=== PATIENT | female | born 1955 | race Caucasian/White ===

== ENCOUNTER 2022-03-18 14:41 | Outpatient (RCR) | payer BC, SELFPAY | END 2022-03-25 11:36 | disposition home or self-care (01) | PROVIDERS: Visit Provider Physician Assistant | DX: M79.672 Pain in left foot (principal); M79.671 Pain in right foot; Z51.89 Encounter for other specified aftercare | CPT/HCPCS: 97161; 97760 ==

== ENCOUNTER 2022-05-08 08:00 | Outpatient (RCR) | payer BC, SELFPAY | END 2022-06-02 14:54 | disposition home or self-care (01) | PROVIDERS: PCP Family Medicine; Visit Provider Family Medicine | DX: M54.9 Dorsalgia, unspecified (principal); Z51.89 Encounter for other specified aftercare | CPT/HCPCS: 97110; 97161 ==

== ENCOUNTER 2022-05-29 17:43 | Outpatient (REF) | payer BC, SELFPAY ==
[2022-05-29 19:22] LABS: SARS PCR* Negative SARS-CoV-2 (Negative)
== END 2022-05-29 17:44 | disposition home or self-care (01) ==
LOC: NPINS 17:43
PROVIDERS: PCP Physician Assistant; Visit Provider Podiatrist
DX: Z20.822 Contact with and (suspected) exposure to COVID-19 (principal)
CPT/HCPCS: 87635

== ENCOUNTER 2022-06-01 05:58 | Day surgery (SDC) | payer BC, SELFPAY ==
[2022-06-01 06:14] VITALS: BMI 21.5
[2022-06-01 06:19] VITALS: BP 116/83; PULSE 71; RESP 16; TEMP 36.6; O2SAT 97
[2022-06-01] MEDS: SODIUM CHLORIDE 0.9 % (FLUSH) 10 ML SYRINGE IVF (06:30)
[2022-06-01] MEDS: LACTATED RINGERS 1000 ML 1,000 ML 100 ML IV (06:30)
--- NOTE | 2022-06-01 07:12 | CRLHL7_ITS ---
For Patients: As a result of the Cures Act, medical imaging exams and procedure reports are released immediately into your electronic medical record. You may view this report before your referring provider. If you have questions, please contact your health care provider. Indication: Left MPJ repair Technique: Two views intraoperative fluoroscopic image Comparison: No comparison Findings: Plate and screw fixation through the left 1st MTP joint normal alignment. Impression: Impression: Dictated by Rachel Ruiz MD @ 06/01/2022 10:21:12 AM (Electronically Signed)
[2022-06-01] MEDS: CEFAZOLIN 1 GM inj IVP (07:25)
[2022-06-01] MEDS: BUPIVACAINE 0.5% 30 ML INJECTION (07:27)
[2022-06-01 09:17] VITALS: BP 97/75; PULSE 64; RESP 16; TEMP 36.3; O2SAT 98
--- NOTE | 2022-06-01 09:22 | W.ANESCHARGE ---
Anesthesia Charges Start Date/Time Anesthesia Start Date: 06/01/22 Anesthesia Start Time: 07:17 Stop Date/Time Anesthesia Stop Date: 06/01/22 Anesthesia Stop Time: 09:20 Summary Emergency: No
[2022-06-01 09:30] VITALS: BP 115/71; PULSE 63; RESP 16; O2SAT 97
--- NOTE | 2022-06-01 09:34 | PM.GSPRC ---
Operative Note Date of procedure: 06/01/22 Type of Procedure: 1st MPJ fusion left foot Procedure Description: Preoperative diagnosis: Hallux rigidus left Postoperative diagnosis: Hallux rigidus left Procedure: 1st MPJ fusion left After discussing the risks and benefits of the procedure, the patient signed informed consent.? The operative site was marked and the patient was brought to the operating room and placed on the operating table in supine position.? Care was taken to pad the patient's pressure points.?? The patient was then given sedation by anesthesia and administered 30 mL 0.5% Marcaine plain the.?? The operative site was then prepped and draped in the usual sterile fashion.? A time-out was then performed. Left leg was then exsanguinated and the tourniquet inflated. Linear incision was made over the 1st metatarsophalangeal joint. The incision was carried down through skin subcutaneous tissues.: Linear capsular and periosteal incision was made. Tissues reflected away from the 1st metatarsal head and proximal phalangeal base. Significant arthritic changes to both the 1st metatarsal head and proximal phalangeal base. Next bone spurs were resected using sagittal saw from the dorsal and medial aspect of the 1st metatarsal head. A guide pin was placed in the 1st metatarsal head and an 18 mm Reamer was used to remove the remaining cartilage and subchondral bone. Typing was removed and placed in the base of proximal phalanx and the corresponding 18 mm Reamer was used to remove the remaining cartilage and subchondral bone. The area was thoroughly irrigated with sterile saline. The opposing fusion surfaces were fenestrated with a K-wire. Simulating weight-bearing with a metal plate the great toe was positioned optimally and temporally fixated with a 0.062 K-wire. C-arm images confirmed position. Guidepin was placed from the distal medial to proximal lateral across the fusion site. 3.0 cannulated headless screw was placed. Excellent compression was noted across the fusion site. A dorsally placed plate was applied. 3.0 mm locking screws x3 were placed distally and 3.0 mm locking screws x2 were placed proximally. An additional 3.0 mm nonlocking screw was placed proximally in the plate. C-arm images confirmed excellent position. With earlier given normal sterile saline. The fascia and capsule repaired with 3-0 Vicryl. Subcutaneous tissues repaired with 4-0 Monocryl the skin closed with 4-0 Prolene. Sterile dressing was applied. Tourniquet was released and normal capillary fill time returned to all digits. She is placed in a well-padded cam boot. Patient tolerated anesthesia and procedure well. The patient was then woken and transported to the recovery area in stable condition. She was discharged per Anesthesia. She is weight-bearing to the heel in the Cam boot with crutch assistance. She is given oxycodone for pain. She is given both written and verbal postop instructions. She will follow-up in 2 days. ? Implants: Arthrex 1st MPJ fusion plate x1. Arthrex 3.0 cannulated headless screw x1. Arthrex 3.0 locking screw x5. Arthrex 3.0 nonlocking screw x1 Anesthesia: MAC and local Surgeon: Scot Levin DPM Estimated blood loss (mL): 2 Condition: stable Disposition: same day
[2022-06-01 09:45] VITALS: BP 130/79; PULSE 62; RESP 16; O2SAT 98
[2022-06-01 10:00] VITALS: BP 127/72; PULSE 67; RESP 16; O2SAT 97
--- NOTE | 2022-06-01 10:20 | SUR.PHASEII ---
PT HERE AT 1000 FOR CRUTCH TRAINING. PATIENT TOLERATED YOGURT AND TEA.
--- NOTE | 2022-06-01 10:45 | W.ANESCHARGE ---
Anesthesia Charges Start Date/Time Anesthesia Start Date: 06/01/22 Anesthesia Start Time: 07:17 Stop Date/Time Anesthesia Stop Date: 06/01/22 Anesthesia Stop Time: 09:20 Summary Emergency: No
== END 2022-06-01 10:40 | disposition home or self-care (01) ==
PROVIDERS: PCP Physician Assistant; Visit Provider Podiatrist
PROC: (CPT 28740; principal; 2022-06-01 07:15)
DX: M20.22 Hallux rigidus, left foot (principal)
CPT/HCPCS: 28289; 01480; 73620; 76000; 97116; 97161; A4580; C1713; J0690; J1100; J2250; J2370; J2405; J2704; J3010; J3490; J7120

== ENCOUNTER 2024-06-06 13:00 | Outpatient (RCR) | payer MEDICARE, BC, SELFPAY | END 2024-08-15 13:03 | disposition home or self-care (01) | PROVIDERS: PCP Physician Assistant; Visit Provider Family Medicine | DX: M25.552 Pain in left hip (principal); Z51.89 Encounter for other specified aftercare | CPT/HCPCS: 97110; 97140; 97161 ==

== ENCOUNTER 2024-06-27 06:45 | Outpatient (CLI) | payer MEDICARE, BC, SELFPAY | END 2024-06-27 06:46 | disposition home or self-care (01) | LOC: INJ CL 06:45 | PROVIDERS: PCP Family Medicine; Visit Provider Family Medicine | DX: M54.16 Radiculopathy, lumbar region (principal); M51.369 Other intervertebral disc degeneration, lumbar region without mention of lumbar back pain or lower extremity pain | CPT/HCPCS: 62323; J0702; Q9966 ==

== ENCOUNTER 2024-12-18 14:15 | Outpatient (RCR) | payer MEDICARE, BC, SELFPAY | END 2025-02-06 08:11 | disposition home or self-care (01) | PROVIDERS: PCP Family Medicine; Visit Provider Family Medicine | DX: M76.02 Gluteal tendinitis, left hip (principal); M16.12 Unilateral primary osteoarthritis, left hip; M76.01 Gluteal tendinitis, right hip; M54.16 Radiculopathy, lumbar region; M48.061 Spinal stenosis, lumbar region without neurogenic claudication; M41.50 Other secondary scoliosis, site unspecified; M47.816 Spondylosis without myelopathy or radiculopathy, lumbar region; Z51.89 Encounter for other specified aftercare | CPT/HCPCS: 97110; 97161 ==